=== PATIENT | female | born 1975 | race Caucasian/White ===

== ENCOUNTER 2019-11-19 09:03 | Emergency (ER) | payer SELFPAY ==
[2019-11-19 09:09] VITALS: BP 95/59; PULSE 82; RESP 18; TEMP 36.6; O2SAT 98; BMI 29.9
--- NOTE | 2019-11-19 09:18 | W.ED.URI ---
HPI - URI/Sore Throat General: Chief Complaint: Upper Respiratory Infection Stated Complaint: SOB,Cough Time Seen by Provider: 11/19/19 09:14 History of Present Illness: HPI Narrative: Patient is a 44-year-old female who comes to the ED with upper respiratory infection symptoms. Patient has a past medical history of asthma. Patient says 2 days ago she started having itchy watery eyes. She then started having nasal drainage and discharge yesterday along with nonproductive cough. Patient is also complaining of having some shortness of breath/wheezing. Patient denies any known contact with COVID positive person. Denies fever, sore throat, nausea/vomiting, bladder or bowel symptoms. Associated symptoms: Deny abdominal pain, chills, chest pain, diarrhea, fever(s), headache(s), nasal congestion, nausea or vomiting Review of Systems Const: Denies: fever(s), chills or fatigue Eyes: Reports: other (Patient had itchy watery eyes 2 days ago but that has since resolved.); Denies: change in vision or eye discomfort ENMT: Reports: nasal discharge; Denies: throat pain, odynophagia or nasal congestion Card: Denies: chest pain, palpitations, edema, swelling of feet/ankles, dyspnea on exertion or orthopnea Resp: Reports: dyspnea, non-productive cough and wheezing; Denies: productive cough GI: Denies: abdominal pain, nausea, vomiting, diarrhea, constipation or hematochezia : Denies: flank pain, dysuria or hematuria Musc: Denies: neck pain, back pain or extremity swelling Skin/Breast: Denies: rash or new lesions Neuro: Denies: headache(s), numbness in extremities or weakness in extremities Physical Exam Const: COMMON NORMALS: no acute distress, patient oriented x3 and alert GENERAL APPEARANCE: cooperative and comfortable HENMT: COMMON NORMALS: normocephalic HEAD & SCALP: normocephalic MOUTH: Normal oral and palatal mucosa present THROAT: posterior oropharynx normal and uvula midline Eye: COMMON NORMALS: Equal, round and reactive pupils present and conjunctivae normal CONJUNCTIVA: Yes conjunctivae normal PUPIL: Yes Equal, round and reactive pupils present Neck/C-Spine: COMMON NORMALS: supple GENERAL: Yes normal visual inspection Resp: COMMON NORMALS: normal respiratory effort, No retractions and No use of accessory muscles EFFORT & INSPECTION: Yes able to speak in complete sentences, No tachypneic, No respiratory distress, No labored and Yes Actively coughing dry AUSCULTATION: wheezes expiratory wheezes and throughout Cardio: COMMON NORMALS: regular rate, regular rhythm, S1 normal heart sound present, S2 normal heart sound present, No gallops present (Cardio), No clicks present (Cardio), No murmurs present (Cardio) and Peripheral pulses 2+ throughout RATE: regular rate RHYTHM: regular rhythm HEART SOUNDS: S1 normal heart sound present and S2 normal heart sound present PERIPHERAL PULSES: Peripheral pulses 2+ throughout GI: COMMON NORMALS: Normal to inspection, nondistended, normoactive bowel sounds present, Soft to palpation, non-tender and no masses PALPATION: Yes Soft to palpation : COMMON NORMALS: Yes no CVA tenderness BLADDER/KIDNEY EXAM: Yes no CVA tenderness Back/Pelvis: COMMON NORMALS: no CVA tenderness Extremity: COMMON NORMALS: normal to inspection and no pedal edema Neuro: COMMON NORMALS: patient oriented x3 and moves all extremities SENSORIUM/ORIENTATION: Yes alert Skin: COMMON NORMALS: no rashes or lesions noted GENERAL SKIN EXAM: no rashes or lesions noted and dry skin Course Reevaluation(s): Reevaluation #1: Patient's wheezing greatly improved after albuterol inhaler treatment. Patient is ready to go home and rest. Vital Signs: Vital signs: Vital Signs Temperature 97.8 F 11/19/19 09:09 Pulse Rate 70 11/19/19 10:59 Respiratory Rate 15 11/19/19 10:59 Blood Pressure 115/79 11/19/19 10:59 Pulse Oximetry 95 11/19/19 10:59 MDM - URI/Sore Throat MDM Narrative: Medical decision making narrative: Patient is a 44-year-old female who comes to the ED with nasal drainage, cough and wheezing. Patient had expiratory wheezing throughout lungs during exam. CBC and CMP were unremarkable. Chest x-ray showed no acute infiltrates. Patient was tested for COVID 19 and results pending. Patient understood and agreed with plan. Patient was given an albuterol breathing treatment while here in the ED and wheezing greatly improved. Patient was discharged and told to follow-up with her PCP in the next 7 to 10 days. She was sent home with prescription for Medrol Dosepak and an albuterol inhaler. Return to ED precautions given. Patient was told to self quarantine, pending COVID results. Patient understood and agreed with plan. Lab Data: Attestation: I reviewed the patient's lab results. Labs: Lab Results 11/19/19 11/19/19 11/19/19 Range/Units 10:00 10:00 10:00 WBC 6.7 (4.0-10.0) 10^3/ uL RBC 3.93 L (4.1-5.3) 10^6/u L Hgb 12.4 (11.5-15.3) g/dL Hct 36.9 L (37.0-47.0) % MCV 93.9 (81-99) fL MCH 31.6 (28.0-34.0) pg MCHC 33.6 (30.0-36.0) g/dL RDW 13.2 (12.1-15.1) % Plt Count 250 (130-400) 10^3/c mm MPV 9.7 (7.4-10.4) fL Neut % (Auto) 55.0 % Lymph % (Auto) 26.6 % [place] % (Auto) 11.2 % Eos % (Auto) 5.7 % Baso % (Auto) 1.2 % Neut # (Auto) 3.69 (1.8-7.7) 10^3/u L Lymph # (Auto) 1.8 (0.8-4.8) 10^3/u L [place] # (Auto) 0.8 (0.2-0.9) 10^3/u L Eos # (Auto) 0.4 (0.0-0.8) 10^3/u L Baso # (Auto) 0.1 (0.0-0.1) 10^3/u L Nucleated RBC % (a uto) 0 % Nucleated RBCs # 0.0 /100WBC Sodium 139 (136-145) mmol/L Potassium 3.6 (3.5-5.1) mmol/L Chloride 102 (98-107) mmol/L Carbon Dioxide 27 (22-29) mmol/L Anion Gap 13.6 (5-19) BUN 8 (6-20) mg/dL Creatinine 0.5 (0.5-0.9) mg/dL GFR Calculation 135.3 H (90-130) mL/min Glucose 120 H (65-115) mg/dL Calculated Osmolal ity 285 (285-295) mOsm/k g Calcium 8.3 L (8.5-10.5) mg/dL Total Bilirubin 0.2 (0.15-1.2) mg/dL AST 16 (0-32) U/L ALT 14 (0-33) U/L Alkaline Phosphata se 64 (35-105) IU/L Total Protein 7.2 (6.6-8.7) g/dL Albumin 3.8 (3.5-5.2) g/dL Globulin 3.4 (1.3-4.6) g/dL HCG, Qual Negative (Negative) Imaging Data^: CXR: Attestation: I personally reviewed and interpreted this imaging study as follows: Radiologist's impression: [address] [address] XRay Report Signed Patient: Marainne Wilkinson Unit #: [id number] : 1975 Age/Sex: 44 / F ADM Date: 11/19/19 Loc: ER Room/Bed: Attending Dr: Ordering Provider/Ordering MD: Jaime Lei Date of Service: 11/19/19 Procedure(s): XR chest 1V portable [id number] Accession Number(s): [id number] Report Number: [id number] PROCEDURE INFORMATION: Exam: XR Chest, 1 View Exam date and time: 11/19/2019 9:41 AM Age: 44 years old Clinical indication: Cough and wheezing TECHNIQUE: Imaging protocol: XR of the chest Views: 1 view. COMPARISON: CR Chest 2 views* [id number] 05/08/2014 12:10 PM FINDINGS: Lungs: No focal peripheral lung consolidation, air bronchogram formation, or silhouette sign. Pleural space: No pleural effusion or pneumothorax. Heart/Mediastinum: The cardiac silhouette is not enlarged. The mediastinal contours are normal. Bones/joints: No acute osseous abnormality. XR/XR chest 1V portable [id number] IMPRESSION: No pneumonia. Dictated By: Checo Ng Signed By: Checo Ng Signed Date/Time: 11/19/19 1016 DD/ 1014 Discharge Plan Discharge Patient Disposition: Home Clinical Impression: Upper respiratory infection with cough and congestion, Expiratory wheezing Condition: Stable Prescriptions: New albuterol sulfate 90 mcg/actuation aerosol powdr breath activated 2 inh INHALATION Q6H PRN (Reason: shortness of breath or wheezing) Qty: 1 RF: 0 Medrol (Jean Pierre) 4 mg tablets,dose pack See Rx Instructions .ROUTE .COMPLEX Qty: 21 RF: 0 Discharge Orders: Discharge Order (Routine); Ordered 11/19/19 Ordered By: Jaime Lei Discharge Diet: Regular Discharge Activity: Increase activity as tolerated Patient Instructions: Upper Respiratory Infection (ED), Reactive Airways Disease (ED) Activity Restrictions/Additional Instructions: Follow-up with medical provider as directed in 7-10 days. Take medications as prescribed. Take [id number] Tylenol or ibuprofen for fevers return to the ER or your medical provider if condition worsens. Please read and understand discharge instructions. If any questions, please ask. Discharge Date/Time: 11/19/19 11:00 Coding Level of Care Code ED Salt Operator for Sonia Fwd Exam Comprehensive
--- NOTE | 2019-11-19 09:25 | XRR_ITS ---
PROCEDURE INFORMATION: Exam: XR Chest, 1 View Exam date and time: 11/19/2019 9:41 AM Age: 44 years old Clinical indication: Cough and wheezing TECHNIQUE: Imaging protocol: XR of the chest Views: 1 view. COMPARISON: CR Chest 2 views* [id number] 05/08/2014 12:10 PM FINDINGS: Lungs: No focal peripheral lung consolidation, air bronchogram formation, or silhouette sign. Pleural space: No pleural effusion or pneumothorax. Heart/Mediastinum: The cardiac silhouette is not enlarged. The mediastinal contours are normal. Bones/joints: No acute osseous abnormality. XR/XR chest 1V portable [id number] IMPRESSION: No pneumonia.
--- NOTE | 2019-11-19 10:06 | PC.NURSE ---
Patient swabbed for covid-19. Patient report no knowledge of the covid-19 pandemic. Patient advised that a covid test was ordered. She was given a description of the covid-19 pandemic. She was advised to limit contact with other people, particularly the elderly until she obtains her results. She has direct contact with a 89 year-old who has brought her to the hospital today. He was asked to remain in his car. She is non-compliant with wearing a mask. Patient reminded numerous times to keep the mask on her face. Basic hygiene reviewed with patient. She verbalized understanding. The patient denies being around other people for the last 5 months. The patient reports visiting places of business recently.
[2019-11-19 10:09] LABS: Basophils # 0.1 10^3/uL (0.0-0.1); Basophils % 1.2 %; Eosinophils # 0.4 10^3/uL (0.0-0.8); Eosinophils % 5.7 %; Hematocrit 36.9 % (37.0-47.0); Hemoglobin 12.4 g/dL (11.5-15.3); Lymphocytes # 1.8 10^3/uL (0.8-4.8); Lymphocytes % 26.6 %; Mean Corpuscular HGB Conc 33.6 g/dL (30.0-36.0); Mean Corpuscular Hemoglobin 31.6 pg (28.0-34.0); Mean Corpuscular Volume 93.9 fL (81-99); Mean Platelet Volume 9.7 fL (7.4-10.4); Monocytes # 0.8 10^3/uL (0.2-0.9); Monocytes % 11.2 %; Neutrophils # 3.69 10^3/uL (1.8-7.7); Nucleated Red Blood Cells % 0 %; Platelet Count 250 10^3/cmm (130-400); Red Blood Count 3.93 10^6/uL (4.1-5.3); Red Cell Distribution Width 13.2 % (12.1-15.1); White Blood Count 6.7 10^3/uL (4.0-10.0)
[2019-11-19 10:21] LABS: HCG, Serum Qual Negative (Negative)
[2019-11-19 10:26] LABS: Alanine Aminotransferase 14 U/L (0-33); Albumin Level 3.8 g/dL (3.5-5.2); Alkaline Phosphatase 64 IU/L (35-105); Anion Gap 13.6 (5-19); Aspartate Amino Transferase 16 U/L (0-32); Blood Urea Nitrogen 8 mg/dL (6-20); Calcium 8.3 mg/dL (8.5-10.5); Carbon Dioxide 27 mmol/L (22-29); Chloride 102 mmol/L (98-107); Creatinine Clr Calc Pharmacy 154.7038; Globulin 3.4 g/dL (1.3-4.6); Glomerular Filtration Rate 135.3 mL/min (90-130); Glucose 120 mg/dL (65-115); Osmolality Calculated 285 mOsm/kg (285-295); Potassium 3.6 mmol/L (3.5-5.1); Sodium 139 mmol/L (136-145); Total Bilirubin 0.2 mg/dL (0.15-1.2); Total Protein 7.2 g/dL (6.6-8.7)
[2019-11-19] MEDS: albuterol 8 gm MDI 2 PUFF INHALATION (10:46)
[2019-11-19 10:48] VITALS: PULSE 78; RESP 16; O2SAT 94
[2019-11-19 10:51] VITALS: PULSE 76
[2019-11-19 10:59] VITALS: BP 115/79; PULSE 70; RESP 15; O2SAT 95
[2019-11-21 05:54] LABS: Quest SARS-CoV-2 RNA NOT DETECTED (NOT DETECTED)
== END 2019-11-19 11:00 | disposition home or self-care (01) ==
PROVIDERS: Emergency Provider Physician Assistant
DX: J06.9 Acute upper respiratory infection, unspecified (principal)
CPT/HCPCS: 12345; 71045; 80053; 84703; 85025; 87040; 87635; 94640; 99283; J3535

== ENCOUNTER 2022-04-05 14:44 | Emergency (ER) | payer MEDICAID, SELFPAY ==
[2022-04-05 15:55] VITALS: BP 119/70; PULSE 75; RESP 15; TEMP 36.4; O2SAT 97; BMI 30.9
--- NOTE | 2022-04-05 16:40 | ED.C_ITS ---
HPI - Psych General: Chief Complaint: Psychiatric Symptoms Stated Complaint: Mental Health Eval Time Seen by Provider: 04/05/22 16:15 History of Present Illness: 46-year-old female who comes in complaining of agitation and difficulty sleeping. She states she stopped using methampheta mines 1 week ago. She stopped smoking marijuana 3 days ago. She is in a local rehab facility is having trouble because she is feeling extremely anxious. She is having visual and auditory hallucinations. The auditory hallucinations are commanding her to hurt herself but she denies any urged to follow through. She denies homicidal ideations. She states she has not been able to sleep for the past 3 nights due to her anxiety. Associated symptoms: Reports auditory hallucinations and visual hallucinations; Deny homicidal ideation or suicidal ideation Review of Systems General: Reports: 10 or more systems reviewed and unremarkable except in HPI and below Psych: Reports: anxiety, panic attacks, difficulty concentrating, visual hallucinations and auditory hallucinations; Denies: suicidal ideation or homicidal ideation Physical Exam Const: COMMON NORMALS: no acute distress, patient oriented x3 and alert GENERAL APPEARANCE: cooperative and comfortable HENMT: COMMON NORMALS: normocephalic HEAD & SCALP: normocephalic MOUTH: Normal oral and palatal mucosa present THROAT: posterior oropharynx normal and uvula midline Eye: COMMON NORMALS: Equal, round and reactive pupils present and conjunctivae normal CONJUNCTIVA: Yes conjunctivae normal PUPIL: Yes Equal, round and reactive pupils present Neck/C-Spine: COMMON NORMALS: supple GENERAL: Yes normal visual inspection Resp: COMMON NORMALS: normal respiratory effort, No retractions and No use of accessory muscles EFFORT & INSPECTION: Yes able to speak in complete sent ences, No tachypneic, No respiratory distress, No labored and Yes Actively coughing dry AUSCULTATION: wheezes expiratory wheezes and throughout Cardio: COMMON NORMALS: regular rate, regular rhythm, S1 normal heart sound present, S2 normal heart sound present, No gallops present (Cardio), No clicks present (Cardio), No murmurs present (Cardio) and Peripheral pulses 2+ throughout RATE: regular rate RHYTHM: regular rhythm HEART SOUNDS: S1 normal heart sound present and S2 normal heart sound present PERIPHERAL PULSES: Peripheral pulses 2+ throughout GI: COMMON NORMALS: Normal to inspection, nondistended, normoactive bowel sounds present, Soft to palpation, non-tender and no masses PALPATION: Yes Soft to palpation : COMMON NORMALS: Yes no CVA tenderness BLADDER/KIDNEY EXAM: Yes no CVA tenderness Back/Pelvis: COMMON NORMALS: no CVA tenderness Extremity: COMMON NORMALS: normal to inspection and no pedal edema Neuro: COMMON NORMALS: patient oriented x3 and moves all extremities SENSORIUM/ORIENTATION: Yes alert Psych: COMMON NORMALS: Normal thought process present ATTITUDE: No agitated and No aggressive ACTIVITY/MOTOR BEHAVIOR: Yes psychomotor agitation, Yes fidgeting and Yes hyperactivity MOOD & AFFECT: Yes anxious THOUGHT PROCESS: Normal thought process present THOUGHT CONTENT: No Suicidality present, No Homicidality present and Yes Hallucination(s) present JUDGEMENT: Fair judgement present (Psych) Skin: COMMON NORMALS: no rashes or lesions noted GENERAL SKIN EXAM: no rashes or lesions noted and dry skin Course Reevaluation(s): Reevaluation #1: Patient is feeling much better after Zyprexa and Ativan. Will discharge with Zyprexa 10 mg twice daily as well as Valium to take as needed at bedtime. She has been instructed to return if her symptoms worsen. Time: 18:15 Vital Signs: Vital signs: Vital Signs Temperature 97.6 F 04/05/22 15:55 Pulse Rate 75 04/05/22 15:55 Respiratory Rate 15 04/05/22 15:55 Blood Pressure 119/70 04/05/22 15:55 Pulse Oximetry 97 04/05/22 15:55 Oxygen Delivery Me thod 04/05/22 15:55 [facility] - Psych Medical Decision Making 46-year-old female who presents 3 days after stopping marijuana and 7 days after stopping methamphetamines. Patient is extremely anxious. She is not tachycardic or hypertensive, I do not feel that she is in alcohol withdrawal. She is not suicidal or homicidal and I do not feel needs to be placed in a psych iatric facility. We will try giving her Zyprexa and Ativan to see if that helps her. Discharge Plan Discharge Patient Disposition: Home Clinical Impression: Anxiety Condition: Stable Prescriptions: New Zyprexa 10 mg tablet 10 mg PO BID Qty: 60 0RF Valium 10 mg tablet 10 mg PO DAILY PRN (Reason: sleep) 1 Days Qty: 10 0RF No Action albuterol sulfate 90 mcg/actuation aerosol powdr breath activated 2 inh INHALATION Q6H PRN (Reason: shortness of breath or wheezing) Qty: 1 0RF Medrol (Jean Pierre) 4 mg tablets,dose pack See Rx Instructions .ROUTE .COMPLEX Qty: 21 0RF Rx Instructions: orally per package directions Discharge Orders: Discharge ED (Routine); Ordered 04/05/22 Ordered By: Lara Jama Discharge Diet: Advance as tolerated Discharge Activity: Resume usual activity Patient Instructions: Anxiety (ED), Opioid Safety, Pain Management Activity Restrictions/Additional Instructions: Take the Zyprexa twice daily. Take the Valium at bedtime as needed to help you sleep. Return if your symptoms are worsening or if you develop any sort of suicidal or homicidal thoughts. Keep your scheduled appointment with your primary care doctor Coding Level of Care Code ED Tow Truck Driver for Jamesg Fwd Exam Comprehensive
[2022-04-05] MEDS: OLANZapine 10 mg ODT PO (16:50)
[2022-04-05] MEDS: LORazepam 2 mg/mL INJ 1 mL 1 MG IM (16:52)
== END 2022-04-05 18:22 | disposition home or self-care (01) ==
PROVIDERS: Emergency Provider Emergency Medicine
DX: F41.9 Anxiety disorder, unspecified (principal)
CPT/HCPCS: 96372; 99284; J2060